=== PATIENT | male | born 1960 | race Caucasian/White ===

== ENCOUNTER 2017-03-26 13:52 | Observation (INO) | payer OTHER ==
[~2017-03-26] VITALS: Ht 185.4 cm; Wt 104.3 kg
[~2017-03-26 13:52] MED LIST: ASPIRIN81 M4; MOBIC 15MG15 MG PO; NEXIUM 40MG40 MG PO; PERCOCET 325 MG1 TA2 PO; PREDNISONE10 MG PO; VALIUM5 M1 PO
--- NOTE | 2017-03-26 15:23 | Operative Report ---
Operative/Inv Procedure Report Surgery Date: 03/26/17 Name of Procedure: CYSTOSCOPY; LEFT URETEROSCOPY WITH laser lithotrypsy of ureter stone, and stent insertion. fluoroscopy, retrograde pyelogram Pre-Operative Diagnosis: LEFT RENAL AND URETER STONES. Post-Operative Diagnosis: SAME Estimated Blood Loss: scant Surgeon/Electrical Laboratory Technician: Hawk Frazier MD Anesthesia: laryngeal mask airway Drains: none Specimens: left ureter stone Complications: stone was imbedded into ureter, requiring prolonged stent placement-to be removed in office in 6 weeks. Condition: improved Operative/Procedure Note Note: The patient was taken to the operating room, and placed on the OR table in supine position. Timeout was performed, with the patient awake, in order to confirm correct identity, procedure, laterality, anesthesia, and other pertinent perioperative information. After adequate anesthesia and antibiotics, the patient was then placed lithotomy stirrups, draped and prepped in the usual surgical fashion. A 22 [place] cystoscope sheath with 30 angle lens was inserted into the bladder without difficulty. Upon entering the bladder, the bladder was noted to be free of tumor free of stone. Both orifices were in their orthotopic position. The left ureter orifice was intubated with an 8fr cone-tip catheter and a retrograde pyelogram with fluoroscopy was performed revealing the 7 mm distal-left ureter stone, and proximal mild hydronephrosis. The cone-tipped catheter was removed, followed by insertion of a 0.035 Glidewire. The gluidewire was advanced into the left renal pelvis, bypassing the ureteral stone, without difficulty. Correct placement of the wire was confirmed with fluoroscopy. Leaving the Glidewire in place, the cystoscope was removed. The rigid Micro-6 ureteroscope was ealily advanced/inserted under direct visualization, following the Glidewire into the bladder. The left orifice was intubated with the ureteroscope without significant difficulty. The ureteroscope was advanced into the left ureter, where the stone was clearly visualized, which was embedded into the ureter wall. Under direct visualization the 365 g holmium YAG laser fiber was inserted through the ureteroscope. With the laser fiber in direct contact with the stone , laser lithotripsy was performed in order to pulverize the stone into multiple tiny fragments. The fragments were extracted by the Bard Zero-tip Basket, and sent to pathology. The flexible ureteroscope was gently inserted into the left renal pelvis under direct visualization. Pyeloscopy and calyxoscopy was performed, and no tumor or stone were seen. The entire length of the ureter was visualize carefully on the way out with the ureteroscope, with the area of stone impaction clearly visible with significant edema and tattered ureter wall. Under direct visualization, a 0.035 Glidewire was inserted through the ureteroscope, and visually guided into the left renal pelvis. The cystoscope was removed, while leaving the Glidewire in place. The 0.035 Glidewire was then backloaded into the 22 [place]ien cystoscope sheath with a 30 angle lens. The cystoscope was then inserted following the Glidewire into the bladder. Over this Glidewire, a 6 x 22 Bard onlay stent was railroaded , with direct cystoscopic visualization, and fluoroscopic visualization, into the left ureter and renal pelvis. When the stent was in proper place, the Glidewire was removed, and the stent remained in good position. The laser was then disengaged. The bladder was then drained, and the cystoscope was removed. The patient tolerated the procedures well, and was then taken to the recovery room in satisfactory condition. After discharge with abx. and pain meds, the patient is insturcted to have follow renal US, and post-op visit in 2-4 weeks. The patient is to follow-up in my office in 6 weeks' time for cystoscopy and left stent removal. Discharge Disposition: PACU CC: Hawk Frazier MD
--- NOTE | 2017-03-26 16:55 | PN- Urology ---
Surgical Brief Attending Note Brief Attending Note: pt with emergent stent ureteroscopy from chills and fever this am. 23 hr obs for iv abx and iv pain management.
[2017-03-26 23:06] VITALS: BP 134/81
[2017-03-27 07:19] VITALS: BP 119/72
[2017-03-27] MEDS ORDERED: PERCOCET 10-321 EACH PO (08:48)
[2017-03-27] MEDS ORDERED: CIPRO500 M1 PO (08:48)
[2017-03-27] MEDS ORDERED: PHENAZOPYRIDIN100 M3 PO (08:48)
[2017-03-27] MEDS ORDERED: DOCUSATE SODIU100 M3 PO (08:48)
[2017-03-27] MEDS ORDERED: ONDANSETRON4 MG/2 M3 PO (08:48)
[2017-03-27 09:10] LABS: ABSOLUTE BASOPHIL COUNT 0 /CUMM (0.0-0.2); ABSOLUTE EOSINOPHIL COUNT 0 /CUMM (0.0-0.7); ABSOLUTE GRANULOCYTE CT 6.9 /CUMM (1.4-6.5); ABSOLUTE LYMPH COUNT 0.8 /CUMM (1.2-3.4); ABSOLUTE MONOCYTE COUNT 0.6 /CUMM (0.10-0.60); BASOPHIL % 0.1 % (0.0-2.0); EOSINOPHIL % 0.1 % (0-5); HEMATOCRIT 35.1 % (42-52); MEAN CORPUSCULAR HGB 31.2 PG (27.0-31.0); MEAN CORPUSCULAR HGB CONC 34.4 G/DL (33.0-37.0); MEAN CORPUSCULAR VOLUME 90.9 FL (80.0-94.0); MEAN PLATELET VOLUME 10.7 FL (7.4-10.4); PLATELET COUNT 153 /CUMM (130-400); RBC DISTRIBUTION WIDTH 12.6 % (11.5-14.5); RED BLOOD CELL CT 3.86 /CUMM (4.70-6.10); WHITE BLOOD CELL COUNT 8.3 /CUMM (4.8-10.8)
[2017-03-27 10:34] LABS: GRANULOCYTE % 83.5 % (42.2-75.2)
--- NOTE | 2017-03-27 15:59 | RADIOLOGY REPORT ---
EXAMINATION: Intraoperative fluoroscopy CLINICAL INFORMATION: Left ureteroscopically with stent placement COMPARISON: None. TECHNIQUE: Intraoperative fluoroscopy was provided for use by Dr. Frazier. A total of 1 images were saved to PACS. TOTAL FLUOROSCOPIC TIME: 1 minute and 8 seconds. FINDINGS\E\IMPRESSION: Intraoperative fluoroscopy provided for use by Dr. Frazier. Please see operative note for detailed findings.
== END 2017-03-27 11:25 ==
LOC: STS 13:52 → PACUH 16:40 → ENRESERV 17:14 → ENTRNSPT 17:48 → CMPTRNSPT 18:35 → 2NB 18:41 → STS 03-27 07:00 → ENPENDDIS 03-27 08:47 → ENTRNSPT 03-27 10:55 → EDTRNSPTSTS 03-27 11:10 → EDTRNSPT 03-27 11:10 → CMPTRNSPT 03-27 11:20 → 2NB 03-27 11:25
PROVIDERS: Urology
DX: N13.2 Hydronephrosis with renal and ureteral calculous obstruction (principal); Z87.442 Personal history of urinary calculi; K21.9 Gastro-esophageal reflux disease without esophagitis
CPT/HCPCS: 6040; 36415; 74018; 82355; 82436; 96374; 96375; 96376; G0378; J0131; J0696; J1100; J1885; J2405; J7042